=== PATIENT | male | born 1960 | race Caucasian/White ===

== ENCOUNTER → 2016-03-18 | Day surgery (SDC) | payer BC ==
[~2016-03-18] MED LIST: BUPIVACAINE 0.25% 30 ML VIAL ONE; Clindamycin 900 mg/D5W 50 ml 900 MG/50 ML IVB IV ONE; DEXAMETHASONE 4 MG/ML VIAL IV ONE; EPHEDrine 50 MG/ML VIAL IM ONE; FENTANYL 100 MCG/2 ML VIAL IV PRN; FENTANYL 250 MCG/5 ML VIAL IV ONE; GLYCOPYRROLATE 1 MG VIAL IM ONE; HYDROmorphone 1 MG INJECTION IV PRN; LABETALOL 20 MG/4 ML SYRINGE IV PRN; LIDOCAINE 100 MG PFS IV ONE; MEPERIDINE 25 MG/ML TUBEX IV PRN; MIDAZOLAM 2 MG/2 ML VIAL IV ONE; NEOSTIGMINE 1 MG/1 ML (1:1000) INJ 10 ML MDV IM ONE; ONDANSETRON HCL 4 MG ODT TAB PO PRN; ONDANSETRON HCL 4 MG/2 ML VIAL IV ONE; ONDANSETRON HCL 4 MG/2 ML VIAL IV PRN; PROPOFOL 200 MG/20 ML VIAL IV ONE; ROCURONIUM 50 MG/5 ML VIAL IV ONE; SUCCINYLCHOLINE 20 MG/1 ML INJ 10 ML MDV IV ONE; hydrALAZINE 20 MG/ML VIAL IV PRN
--- NOTE | 2016-03-18 06:30 | HIM.ANES ---
Anesthesia Evaluation & Plan Diagnoses: PAIN IN RIGHT SHOULDER (03/18/16) ADHESIVE CAPSULITIS OF UNSPECIFIED SHOULDER (03/18/16) INCOMPLETE ROTATR-CUFF TEAR/RUPTR OF R SHOULDER, NOT TRAUMA (03/18/16) IMPINGEMENT SYNDROME OF RIGHT SHOULDER (03/18/16) - Focused Review of Systems Cardiac History: Yes: Hx Hypertension, Hx Cardiac Disorders HEENT: Yes: Hx Vision Problem (REASING GLASSES), Other HEENT Problems Hx Other HEENT Surgery: TONSILECTOMY AGE 7 Hx Other HEENT Problems: SEASONAL ALLERGIES Gastrointestinal: Yes: Hx Colonoscopy (06/2011 ONE POLYP REMOVED) No: Hx Gastrointestinal Disorders Neurological/Musculoskeletal: No: Hx Neurological Disorders Psychological: No Hx Mental/Emotional Disorders Blood/Autoimmune: No: Hx AIDS, Hx Hepatitis (type) Smoking Status: Former smoker Surgical History: Yes: Knee (LEFT SHOULDER REPAIR 2008) Other Surgical History: TONSILECTOMY AGE 7 - Focused Physical Exam Mallampati: Class II Thyromental Distance: Greater than 3 Neck: Full Range of Motion Dental: Normal - no significant findings Cardiovascular/Chest: Normal Respiratory: Lungs clear Any problems with anesthesia, including nausea and vomiting?: No Any relatives with a history of Malignant Hyperthermia?: No Does the patient have a history of Motion Sickness-: No Other: Allergies Allergy/AdvReac Type Severity Reaction Status Date / Time Penicillins Allergy Severe Hives* Verified 03/17/16 10:18 Home Medications Medication Instructions Recorded Last Taken Type Multivitamin with Minerals 1 each PO DAILY 03/17/16 Unknown History [One-A-Day Maximum Formula] Naproxen Sodium [Aleve] 220 mg PO BID PRN 03/17/16 Unknown History Valsartan [Diovan] 80 mg PO DAILY 03/17/16 Unknown History Height and Weight Patient's height 5 ft 9 in Patient's weight 90.265 kg - Anesthetic Plan Anesthesia Type: General, Post-Op Block- for Pain Control (Interscalene block) ASA Class: 2 -: I have examined this patient and reviewed the medical record. The patient has been assessed prior to anesthesia. Risks and benefits of anesthesia and anesthetic technique options have been discussed and all questions answered. The patient accepts the risk and desires me to proceed with the planned anesthetic.
--- NOTE | 2016-03-18 07:44 | HIM.ANESP ---
Procedure Note DATE OF PROCEDURE: 03/18/16 PREOPERATIVE DIAGNOSIS: Post-operative Pain Control. POSTOPERATIVE DIAGNOSIS: Same PROCEDURE: Brachial Plexus Block at interscalene PERFORMING PROVIDER: Orlando St MD TIME OUT: [727] BLOCK START Time: [728] BLOCK STOP Time: [31] MEDICATIONS: Bupivacaine 0.5% 30 ml EPINEPHRINE 1:200,000 NEEDLE: EchoStim 21G 50MM STERILE BARRIERS: Cap, mask, sterile gloves. COMPLICATIONS: None. BLOOD LOSS: 0 cubic centimeters. PROCEDURE FINDINGS AND TECHNIQUE:At the request of the Operative Surgeon and patient, a Brachial Plexus Block was performed for post-operative pain relief. Risk, benefits and alternatives of the procedure were explained. Informed consent was obtained and surgical site confirmed with patient and chart. Time out was performed. Pulse oximetry, EKG and BP monitoring were established.. The Right neck was prepped and draped in a sterile manner. Skin anesthesia was obtained with 1% Xylocaine infiltration. The Brachial plexus was visualized by ultrasound and an image is appended. (see chart) An EchoStim needle was inserted in the proximity of the nerves. Under direct visualization local anesthetic was injected in incremental volumes of 5 ml with negative aspirations throughout. There was no pain on injection. Patient tolerated the procedure well without complications and the case was continued under general anesthesia as was the request of the patient.
--- NOTE | 2016-03-18 09:34 | HIMOP ---
DATE OF PROCEDURE: 03/18/2016 PREOPERATIVE DIAGNOSES: 1. Partial rotator cuff tear of right shoulder. 2. Impingement syndrome. 3. Mild adhesive capsulitis. POSTOPERATIVE DIAGNOSES: 1. Partial degenerative supraspinatus tear of right shoulder. 2. Impingement. 3. Type 1 labral tear. 4. Synovitis. 5. Mild adhesive capsulitis. OPERATIONS: 1. Arthroscopic subacromial decompression of right shoulder. 2. Arthroscopic debridement of supraspinatus and labrum. 3. Synovectomy. 4. Manipulation under anesthesia of right shoulder. SURGEON: Marcos Suarez MD TELEHEALTH NURSE: Joya Worley PA-C ANESTHESIA: General with interscalene block. BLOOD LOSS: None. DRAINS: None. COMPLICATIONS: None. DISPOSITION: Stable to recovery. PROCEDURE IN DETAIL: The patient was taken back to the surgical suite, where interscalene block was placed on the right shoulder. He was induced under general anesthesia and positioned in the beach chair positioner. The right shoulder was then examined. He had a mild degree of adhesive capsulitis and a gentle manipulation under anesthesia was performed obtaining full range of motion. There was no instability noted. The right shoulder was then prepped and draped in the standard sterile fashion. Bony landmarks were outlined with a marking pen. An 18-gauge spinal needle was inserted posteriorly into the glenohumeral joint, which was insufflated with 60 mL of sterile saline solution. The skin was cut posteriorly with an 11-blade establishing a standard posterior portal through which the arthroscopy trocar and cannula were introduced. The arthroscope was introduced. A standard anterior mid-glenoid working portal was established using an inside-out technique. Diagnostic glenohumeral arthroscopy was then carried out. The subscapularis tendon appeared normal. The biceps tendon appeared normal. The medial jhony of the biceps tendon was intact. The anchor of the biceps tendon was intact on the supraglenoid tubercle. There was some degenerative tearing of the anterior aspect of the supraspinatus tendon involving a minimal amount of thickness of the tendon. This was debrided with a shaver. The infraspinatus and teres minor tendons appeared normal and were intact. There were some mild degenerative changes of the humeral head. The glenoid appeared normal. There was some type 1 degenerative tearing of the superior labrum. This was debrided with a shaver. There was no sign of a SLAP lesion or a Bankart lesion. The anterior glenohumeral ligaments were intact. No other pathology was noted within the glenohumeral joint. The cannulas were then placed in the subacromial space. There was quite a bit of synovitis and bursitis present in the subacromial space. Synovectomy was performed and a bursectomy with the shaver and the radiofrequency wand, which was also used for hemostasis throughout the case. The soft tissues were taken down from the undersurface of the acromion. The rotator cuff was inspected from the bursal surface. There were signs of impingement noted, but no sign of a tear on the bursal side of the rotator cuff. There was no pathology noted at the AC joint. He had a type 2 acromion. The subacromial decompression was then completed by performing an anterior acromioplasty with the shaver. All debris was evacuated. Final hemostasis was achieved. The arthroscopic instruments were then removed. The 2 portals were closed with 3-0 Prolene sutures. Sterile dressings were applied and a sling. The patient was extubated and taken to the recovery room in stable condition. He tolerated the procedure well without immediate complications. [id number]
[2016-03-18 10:05] VITALS: TEMP 98
[2016-03-18 10:38] VITALS: PULSE 75
[2016-03-18 13:36] VITALS: BP 121/75
--- NOTE | 2016-03-18 13:36 | SC.ANESPOS ---
Post-Anesthesia Note LOC: Fully Awake Post-Anesthesia Assessment: Awake, Returned to Baseline, Hemodynamically Stable , Pain Control Adequate Phase I & II Recovery Complete: Yes Apparent Anesthesia Complication: No : N PACU Discharge Time: 09:55 - Vital Signs Blood Pressure: 121/75 Pulse: 75 Resp Rate: 16 O2 Sat: 97 Temp: 98.0 F - Comments Anesthesia Discharge Time Report Time 09:55
== END ==
LOC: SDC 05:46
PROVIDERS: ATTEND Orthopaedic Surgery
PROC: 0LQ14ZZ Repair Right Shoulder Tendon, Percutaneous Endoscopic Approach (ICD-10-PCS; principal; 2016-03-18 07:15)
PROC: 0RNJ4ZZ Release Right Shoulder Joint, Percutaneous Endoscopic Approach (ICD-10-PCS; 2016-03-18 07:15)
DX: M75.111 Incomplete rotator cuff tear or rupture of right shoulder, not specified as traumatic (principal); M75.41 Impingement syndrome of right shoulder; M75.01 Adhesive capsulitis of right shoulder; M65.811 Other synovitis and tenosynovitis, right shoulder; I10 Essential (primary) hypertension; J30.9 Allergic rhinitis, unspecified; Z87.891 Personal history of nicotine dependence; Z79.899 Other long term (current) drug therapy
CPT/HCPCS: 29826; 29827; J0171; J0330; J1100; J2001; J2250; J2405; J2710; J3010; J3490; S0020; S0077